=== PATIENT | female | born 1985 | race American Indian/Alaskan Native ===

== ENCOUNTER 2017-05-04 09:28 | Inpatient (IN) | payer MEDICAID ==
--- NOTE | 2017-04-28 13:50 | History and Physical Report ---
History of Present Illness Date of examination: 04/28/17 Date of admission: 05/04/2017 Chief complaint: here for section History of present illness: Pt here for repeat c-sections. All risk, benefits, and alternatives were d/w pt and all questions were addressed and answered. Consents were signed and placed on the chart. EDC Calculations LMP: 05/09/2017 EDC Confirmation: 05/09/2017 Gestational Age: 6 3/7 weeks Past History : 2 # 1 Delivery date: 2009 Weeks Gestation: 39 Delivery type: Anesthesia type: epidural Delivery location: [place] Sex: Female weight: 6-8 Past Medical History: Reviewed history from 05/30/2016 and no changes required: Negative Past Medical History Past Surgical History: Reviewed history from 05/30/2016 and no changes required: Cholecystectomy (2010) Past Medical History Abnormal PAP: negative COREY Exposure: negative Infertility: negative Uterine Anomaly: negative Uterine Surgery (not C/S): negative Other Gynecologic Problems: negative Medical History Comments: negatove Family Hx: HTN DM 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 Infection History Hx of STD: none Personal hx. of genital herpes: no Partner hx. of genital herpes: no Rash, Viral, or Febrile illness since last LMP? no Varicella/Chicken Pox Status: Previous Disease Genetic History Congenital Heart Defect: Mom: no Dad: no Myriam Disease: Mom: no Dad: no Thalassemia Mom: no Dad: no Neural Tube Defect Mom: no Dad: no Down's Syndrome Mom: no Dad: no Christiano-Sachs Mom: no Dad: no Sickle Cell Disease/Trait Mom: no Dad: no Hemophilia Mom: no Dad: no Muscular Dystrophy Mom: no Dad: no Cystic Fibrosis Mom: no Dad: no Killen Chorea Mom: no Dad: no Mental Retardation Mom: no Dad: no Fragile X Mom: no Dad: no Other Genetic/Chromosomal Disorder Mom: no Dad: no Child w/other defect Mom: no Dad: no Enviromental Exposures Xray Exposure: no Medication, drug, or alcohol use since LMP: no Chemical/Other Exposure: no Exposure to Cat Liter: no Hx of Parvovirus (Fifth Disease): no Occupational Exposure to Children: none Active Medications: PROMETHAZINE HCL 25 MG TABS (PROMETHAZINE HCL) 1 tab po q6hrs prn PLUS 27-1 MG TABS ( VIT-FE FUMARATE-FA) 1 po Current Allergies: No known allergies Past History Past Medical History: no pertinent history Past Surgical History: section DRILL HAND History: denies: abnormal PAP smear Family/Genetic History: hypertension Social history: no significant social history, - Obstetrical History Expected Date of Delivery: 05/09/17 Actual Gestation: 38 Week(s) 3 Day(s) : 2 Para: 1 Number of Living Children: 1 Review of Systems All systems: negative - Physical Exam Cardiovascular: Regular rate, Normal S1, Normal S2 Lungs: Positive: Clear to auscultation, Normal air movement Abdomen: Positive: normal appearance, soft. Negative: distention, tenderness, guarding Genitourinary (Female): Positive: other (deferred) Extremities: Positive: normal, edema (trace b/l). Negative: tenderness - Obstetrical FHR: auscultation normal Results All other labs normal. Assessment and Plan - Patient Problems (1) Previous delivery affecting , antepartum Status: Acute Plan to address problem: -admit for c/s -consents signed and placed on the chart. (2) 39 weeks gestation of Status: Acute
[2017-05-04] MEDS ORDERED: PITOCin/NS 20 UNIT/1000ML DRIP 20 UNITS/1,000 ML BAG IV SCH ×2 (10:00→14:00)
[2017-05-04] MEDS ORDERED: BICITRA PO NR (10:00)
[2017-05-04] MEDS ORDERED: ANCEF/STERILE WATER 2 GM/20 ML 2 GM/20 ML SYRINGE IV NR (10:00)
[2017-05-04] MEDS ORDERED: REGLAN IV NR (10:00)
[2017-05-04] MEDS ORDERED: PEPCID IV NR (10:00)
[2017-05-04] MEDS: LACTATED RINGERS 1,000 ML IV SCH ×2 (10:00→11:05)
[2017-05-04 10:30] LABS: Basophils % (Auto) 0.6 % (0.0-1.8); Eosinophils % (Auto) 1.3 % (0.0-4.3); Hematocrit 35.2 % (30.3-42.9); Mean Corpuscular HGB Conc 34 % (30-34); Mean Corpuscular Hemoglobin 29 pg (28-32); Mean Corpuscular Volume 86 fl (79-97); Platelet Count 219 K/mm3 (140-440); Red Blood Count 4.09 M/mm3 (3.65-5.03); Red Cell Distribution Width 14.3 % (13.2-15.2); White Blood Count 10.9 K/mm3 (4.5-11.0)
[2017-05-04] MEDS ORDERED: NARCAN 0.4 MG/1 ML IV PRN ×2 (10:42→13:44)
--- NOTE | 2017-05-04 10:42 | Anesthesia Consultation ---
Anesthesia Consult and Med Hx Date of service: 05/04/17 - Airway Anesthetic Teeth Evaluation: Good ROM Head & Neck: Adequate Mental/Hyoid Distance: Adequate Mallampati Class: Class II Intubation Access Assessment: Probably Good - Pre-Operative Health Status ASA Pre-Surgery Classification: ASA2 Proposed Anesthetic Plan: Epidural, Spinal - Pulmonary Hx Asthma: No COPD: No Hx Pneumonia: No - Cardiovascular System Hx Hypertension: No - Central Nervous System Hx Seizures: No Hx Psychiatric Problems: No - Endocrine Hx Renal Disease: No Hx End Stage Renal Disease: No Hx Hypothyroidism: No Hx Hyperthyroidism: No - Hematic Hx Anemia: No Hx Sickle Cell Disease: No - Other Systems Hx Alcohol Use: No
--- NOTE | 2017-05-04 10:42 | Anesthesia Day of Surgery ---
Anesthesia Day of Surgery - Day of Surgery Patient Examined: Yes Patient H&P Reviewed: Yes Patient is NPO: Yes
[2017-05-04] MEDS ORDERED: ZOFRAN IV PRN (11:00)
[2017-05-04] MEDS ORDERED: TORADOL IV PRN (11:00)
[2017-05-04] MEDS ORDERED: EMLA TP PRN (11:00)
[2017-05-04] MEDS ORDERED: SODIUM CHLORIDE FLUSH SYRINGE 10 ML IV NR (11:00)
[2017-05-04] MEDS ORDERED: MORPHINE ONE (11:38)
[2017-05-04] MEDS ORDERED: NACL 0.9% 1000 ML 1,000 ML ONE (11:38)
[2017-05-04] MEDS ORDERED: WATER FOR IRRIG STERILE IR ONE (11:40)
[2017-05-04] MEDS ORDERED: NACL 0.9% IR ONE (11:40)
[2017-05-04] MEDS ORDERED: DILAUDID ONE (12:35)
[2017-05-04] MEDS ORDERED: LANSINOH TP PRN (13:44)
[2017-05-04] MEDS ORDERED: TUCKS PAD TP PRN (13:44)
--- NOTE | 2017-05-04 13:55 | Operative Report ---
Operative Report Operative Report: Date of procedure: 05/04/2017 Pre-operative diagnosis: 39 weeks Previous Post-operative diagnosis: Same Procedure name(s): Repeat lower transverse section via Pfannenstiel skin incision Surgeon: Dr. Marx Bullet Charging Machine Operator: Ms. Mary Jackson CST Anesthesia: Spinal epidural EBL: 700 mL Urine output: 100 mL of clear urine at the end of procedure Fluids: 1600 mL Findings: Liveborn male weight 7 lbs. 14 oz. Apgars of 8 and 9 at one and 5 minutes Normal fallopian tubes and ovaries bilaterally Indications: Patient presents for repeat section. All risks benefits and alternatives were discussed with the patient. Consents were signed and placed on the chart. Procedure: Patient was taking to the operating room. Patient was then prepped and draped in sterile fashion after anesthesia was found to be adequate. A low transverse skin incision was made with the scalpel through previous incisional scar and carried down to the underlying layer of fascia with the Bovie. The fascia was then incised in the midline and this incision was extended bilaterally with the Bovie. The superior aspect of the fascia was grasped with Stephanie clamps tented upward and dissected off of the anterior rectus muscles with the scalpel. In similar fashion the inferior aspect of the fascia was grasped with Stephanie clamps tented upward and dissected off of the anterior rectus muscles. The rectus muscles were then bluntly divided in the midline. The peritoneum was identified and entered into sharply. The bladder blade was placed. The bladder flap was created using the Metzenbaum scissors. The Timothy retractor was placed. The bladder blade was replaced. A lower transverse uterine incision was made with the scalpel and extended bilaterally with the bandage scissors. Artificial rupture of membranes was performed yielding clear amniotic fluid. The infant's head was then delivered atraumatically. The anterior shoulder and rest of delivered without difficulty. The umbilical cord was clamped x2. The cord was cut. The infant was then placed in sterile bassinet. Cord blood was not collected The placenta was manually extracted in its entirety. The uterus was exteriorized and cleared of all clots and debris. The uterine incision was closed using 0 Vicryl in a running locking fashion. [id number] sutures were used along the incision line to secure excellent hemostasis. The posterior cul-de-sac was copiously irrigated. The uterus was returned to the abdomen. The gutters were also irrigated. Tisseel was placed along the uterine incision with excellent hemostasis noted. The anterior rectus muscles were reapproximated using 3-0 Vicryl. The anterior rectus fascia was reapproximated using 0 Vicryl in a running fashion. The subcuticular fat was reapproximated using 2-0 Vicryl in a running fashion. The skin was reapproximated with 4-0 Monocryl with a subcutaneous stitch. The patient tolerated the procedure well. Sponge lap and needle counts were all correct x3. Patient was taken to the recovery room awake and in stable condition.
[2017-05-04] MEDS: DILAUDID IV PRN (14:00)
[2017-05-04] MEDS: D5LR 1,000 ML IV SCH (16:23)
[2017-05-04] MEDS: BENADRYL IV PRN ×2 (17:39→20:45)
[2017-05-04] MEDS: ANCEF/NS 1 GM/50 ML 1 GM/50 ML BAG IV SCH (20:16)
[2017-05-05 01:41] LABS: Hematocrit 31.4 % (30.3-42.9); Hemoglobin 10.4 gm/dl (10.1-14.3)
[2017-05-05] MEDS: DILAUDID IV PRN (01:53)
[2017-05-05] MEDS: D5LR 1,000 ML IV SCH (01:54)
[2017-05-05] MEDS: ANCEF/NS 1 GM/50 ML 1 GM/50 ML BAG IV SCH (03:36)
--- NOTE | 2017-05-05 08:27 | Progress Note ---
Assessment and Plan Patient doing well, no complaints. Pito castillo, VSSAF, H&H 10.4/31.4. Continue present postop pathway, increase activity and diet as tolerated today. - Patient Problems (1) delivery delivered Current Visit: Yes Status: Acute Subjective - Subjective Date of service: 05/05/17 Principal diagnosis: Postop day #1 s/p repeat c/s Patient reports: appetite normal, voiding normally, pain well controlled, ambulating normally, no dizzy ambulation, no nauseated [place]: doing well, nursing well Objective - Vital Signs Latest vital signs: Vital Signs Temp Pulse Resp BP Pulse Ox 05/05/17 04:25 97.5 F L 83 20 104/70 05/05/17 01:53 20 05/05/17 00:45 98.6 F 82 20 113/75 05/04/17 20:20 99.2 F 98 H 18 100/51 05/04/17 16:30 98.5 F 78 16 110/62 05/04/17 14:25 97.7 F 85 18 107/58 05/04/17 14:00 97.7 F 05/04/17 13:57 97.6 F 05/04/17 13:40 77 13 113/68 100 05/04/17 13:30 85 19 106/58 100 05/04/17 13:20 88 17 116/66 100 05/04/17 13:10 82 16 119/77 98 05/04/17 13:00 97.7 F 108 H 99 05/04/17 09:53 97 H 113/71 Intake and Output 05/04/17 05/05/17 05/05/17 22:59 06:59 14:59 Intake Total 530 1960 Output Total 2400 2100 Balance -1870 -140 Intake: IV 50 1000 ANCEF/NS 1 GM/50 ML 1 gm 50 In 50 ml @ 100 mls/hr IV Q8H DEANA Rx#:[id number] D5lr 1,000 ml @ 125 mls/ 1000 hr IV DIRECT DEANA Rx#: [id number] Oral 480 960 Output: Urine 2400 2100 Indwelling Catheter 2400 900 Void 1200 Other: Total, Intake Amount 480 240 Total, Output Amount 800 400 # Voids Void 400 - Exam Breasts: Present: normal, Cardiovascular: Present: Regular rate Lungs: Present: Clear to auscultation, Normal air movement Abdomen: Present: normal appearance, soft Vulva: both: normal Uterus: Present: normal, firm, fundal height at umbilicus Extremities: Present: normal Deep Tendon Reflex Grade: Normal +2 Incision: Present: normal, dry, dressed
[2017-05-05] MEDS: PERCOCET 5/325 PO PRN ×3 (10:30→22:35)
--- NOTE | 2017-05-05 10:54 | Progress Note ---
Subjective Date of service: 05/05/17 Principal diagnosis: Postop day #1 s/p repeat c/s Interval history: 1st POD after Patient is in the bed, comfortable. Pain is well controlled with pain meds. Ambulated well. No residual neurological deficit. Some pruritus is controlled with benadryl. No anesthesia complications Objective - Constitutional Vitals: Vital Signs - 12hr 05/05/17 05/05/17 05/05/17 00:45 01:53 04:25 Temperature 98.6 F 97.5 F L Pulse Rate 82 83 Respiratory 20 20 20 Rate Blood Pressure 113/75 104/70 05/05/17 05/05/17 07:15 10:30 Temperature 98.3 F Pulse Rate 80 Respiratory 16 18 Rate Blood Pressure 104/70 - Labs CBC & Chem 7: 05/05/17 01:08
[2017-05-06] MEDS: PERCOCET 5/325 PO PRN ×2 (04:42→11:06)
--- NOTE | 2017-05-06 08:57 | Progress Note ---
Assessment and Plan patient w/o complaints, desires d/c home today. VSSAF, lochia scant, no s/s anemia, H&H stable, incision D&I, wound care discussed, breast feeding teaching provided. plan for d/c home, routine f/u in office scheduled for 1 week. - Patient Problems (1) delivery delivered Current Visit: Yes Status: Acute Subjective - Subjective Date of service: 05/06/17 Principal diagnosis: Postop day #2 s/p repeat c/s Patient reports: appetite normal, voiding normally, pain well controlled, flatus , ambulating normally, no dizzy ambulation, no nauseated : doing well, nursing well Objective - Vital Signs Latest vital signs: Vital Signs Temp Pulse Resp BP 05/06/17 00:00 98.4 F 90 18 114/78 05/05/17 16:26 98.3 F 86 20 114/80 05/05/17 16:22 20 05/05/17 12:00 98.2 F 103 H 20 88/58 05/05/17 10:30 18 Intake and Output 05/05/17 05/06/17 05/06/17 22:59 06:59 14:59 Intake Total 360 240 Balance 360 240 Intake: Oral 360 240 Other: Total, Intake Amount 360 240 Voiding Method Toilet # Voids Void 1 1 - Exam Breasts: Present: normal, Cardiovascular: Present: Regular rate Lungs: Present: Clear to auscultation, Normal air movement Abdomen: Present: normal appearance, soft Vulva: both: normal Uterus: Present: normal, firm, fundal height at umbilicus Extremities: Present: normal Deep Tendon Reflex Grade: Normal +2 Incision: Present: normal, dry, intact
--- NOTE | 2017-05-06 09:04 | Discharge Summary ---
Providers - Providers Date of Admission: 05/04/17 09:28 Date of discharge: 05/06/17 (requesting d/c home) Attending physician: DAYDAY ADLER Primary care physician: DAYDAY ADLER Hospitalization Reason for admission: section Delivery: Procedure: repeat low transverse Incision: normal, dry, intact Other procedures: none complications: none Discharge diagnosis: IUP at term delivered [place] baby: male Hospital course: uncomplicated c/s delivery Condition at discharge: Good Disposition: DC-01 TO HOME OR SELFCARE - Discharge Diagnoses (1) delivery delivered Status: Acute Plan - Discharge Medications Prescriptions: Ibuprofen [Motrin 800 MG tab] 800 mg PO Q8HR PRN #30 tablet PRN Reason: Pain Lidocain2.5%/Prilocai2.5% [Emla] 2 gm TP ONCE #1 tube oxyCODONE /ACETAMINOPHEN [Percocet 5/325] 1 tab PO Q4HR #30 tab - Provider Discharge Summary Activity: routine, no sex for 6 weeks, no heavy lifting 4 weeks, no strenuous exercise Diet: routine Instructions: routine Additional instructions: [] Smoking cessation referral if applicable(refer to patient education folder for contact #) [] Refer to [facility] Booklet Call your doctor immediately for: * Fever > 100.5 * Heavy vaginal bleeding ( >1 pad per hour) * Severe persistent headache * Shortness of breath * Reddened, hot, painful area to leg or breast * Drainage or odor from incision. * Keep incision clean and dry at all times and follow doctor's instructions regarding bathing/showering - Follow up plan Follow up: DAYDAY ADLER MD [Primary Care Provider] - 7 Days (Congratulations!! Please call [phone] to scheduled your son's circumcision and keep your scheduled appointment for your incision check. Bring EMLA cream to your son's appointment and await further instructions. Call for any questions or concerns.)
[2017-05-06 15:19] VITALS: BP 125/66
--- NOTE | 2017-05-09 09:05 | Query-Anemia ---
Aga Phillip____Araseli Date:____05/09/17 Tobacco Feeder Catcher/CDS:___Miriam / Eddie Phone#:__[phone] Exercise your independent professional judgment when responding to this query. Questions asked do not imply a particular answer is desired or expected. We greatly appreciate your clarification on this issue. Clinical Documentation States: 31 year old female was admitted on 04/28/17. The Operative report (Dr. Marx) states " Pre-operative diagnosis: 39 weeks Previous Procedure name(s): Repeat lower transverse section via Pfannenstiel skin incision EBL: 700 mL " Clinical Findings Show: 05/04/17 05/05/17 Hgb: 12.0 10.4 Hct: 35.2 31.4 Etiology: [ ] Precipitous Drop in Hemoglobin [ ] Precipitous Drop in Hematocrit [X ] Anemia due to acute blood loss [ ] Anemia due to chronic blood loss [ ] Anemia secondary to ESRD [ ] Anemia secondary to neoplastic disease [ ] Iron deficiency anemia due to malabsorption [ ] GI Bleed from: [ ] Anemia of chronic disease ,Other: [ ] Other: [ ] Unable to determine [ ] Comment/Explanation: Present on Admission: [ ] Yes (Y) [ ] Clinically undeterminable (W) [X ] No (N) Please also document response in your Progress Notes and/or Discharge Summary and indicate if the condition was present on admission. ELIEZER
== END 2017-05-06 13:35 | disposition home or self-care (01) | DRG 765 ==
LOC: APU 09:28 → OB 14:57
PROVIDERS: ADMIT Obstetrics & Gynecology; ATTEND Obstetrics & Gynecology
PROC: 10D00Z1 Extraction of Products of Conception, Low, Open Approach (ICD-10-PCS; principal; 2017-05-04)
DX: O34.211 Maternal care for low transverse scar from previous cesarean delivery (principal); D62 Acute posthemorrhagic anemia; Z3A.39 39 weeks gestation of pregnancy; Z37.0 Single live birth
CPT/HCPCS: 36415; 85014; 85018; 85025; 86592; 86850; 86900; 86901; 99211; C9250; G0463; J0690; J1170; J1200; J1885; J2270; J2590; J2765; J7030; J7120; J7121